=== PATIENT | female | born 1980 | race Caucasian/White ===

== ENCOUNTER 2018-09-02 00:36 | Outpatient (CLI) | payer BC, SELFPAY ==
--- NOTE | 2018-09-02 08:33 | DI.US_ITS ---
SYMPTOM/DIAGNOSIS: ELEVATED LFTS R79.89 ABDOMEN ULTRASOUND: Comparison is made with 29 April 2008. The liver appears somewhat enlarged and shows increased echogenicity, consistent with fatty infiltration. No focal liver lesions or biliary dilatation is seen. The patient is status post cholecystectomy The spleen, kidneys, pancreas and aorta are unremarkable. There is no ascites. IMPRESSION: Mildly enlarged echogenic liver, consistent with fatty infiltration.
== END 2018-09-02 00:56 ==
PROVIDERS: PCP Nurse Practitioner Family; Visit Provider Nurse Practitioner Family
DX: K76.0 Fatty (change of) liver, not elsewhere classified (principal); R16.0 Hepatomegaly, not elsewhere classified; Z90.49 Acquired absence of other specified parts of digestive tract
CPT/HCPCS: 76700

== ENCOUNTER 2020-12-30 11:07 | Outpatient (REF) | payer OTHER, SELFPAY ==
--- NOTE | 2020-12-30 09:00 | PAPFT_PTH ---
PATIENT: Meeta Hills LOC: [facility]#:[id number] AGE/SX: 40/F ROOM: RE12/30/[address]: Snehal Faust : 1980 BED: DIS: 12/30/2020 SPEC #: [id number] RECD: 12/30/20 12:53 STATUS: LILI REWen #: [id number] ROSSANA: 12/30/20 09:[address]: Snehal Faust DEPT: [facility] Cytology RECD BY: Cecy Moss ENTERED: 12/30/20 12:53 SP TYPE: PAPFT OTHR DR: Dania Barron Tissues: 1 - CX/ENDOCX FOR PAP SMEARS Procedures: PAP THIN PREP/[facility] Screening HPV DNA PROBE Comments: [id number]
== END 2020-12-30 11:08 | disposition home or self-care (01) ==
LOC: NCHCN 11:07
PROVIDERS: PCP Nurse Practitioner Family; Visit Provider Family Medicine
DX: Z00.00 Encounter for general adult medical examination without abnormal findings (principal); Z12.4 Encounter for screening for malignant neoplasm of cervix; Z01.419 Encounter for gynecological examination (general) (routine) without abnormal findings; Z11.51 Encounter for screening for human papillomavirus (HPV)
CPT/HCPCS: 88142; 87624

== ENCOUNTER 2023-02-13 14:13 | Outpatient (CLI) | payer SELFPAY ==
--- NOTE | 2023-02-13 | DI.RAD_ITS ---
Exam(s) XR FOOT RT COMPLETE EXAM: XR FOOT RT COMPLETE CLINICAL HISTORY: RT FOOT INFECTION, L08.9. TECHNIQUE: 2D digital imaging was performed. COMPARISON: No exams were available for comparison FINDINGS: 3 views Mild soft tissue swelling dorsally over the metatarsals. There is no evidence of acute fracture or d iastasis of the Arabella andre joint. No degenerative changes nor erosions, including at the great toe me tatarsophalangeal joint. Bone density normal. No osseous lesions. There is no radiographic evidenc e of osteomyelitis. IMPRESSION: No significant osseous findings. DATA REPOSITORY: RADIATION DOSE DELIVERED:
== END 2023-02-13 14:33 ==
LOC: DI 14:13
PROVIDERS: PCP Nurse Practitioner Family; Visit Provider Family Medicine
DX: L08.9 Local infection of the skin and subcutaneous tissue, unspecified (principal)
CPT/HCPCS: 73630